=== PATIENT | female | born 1945 | race Caucasian/White ===

== ENCOUNTER 2016-12-19 14:09 | Emergency (ER) | payer MEDICARE ==
[~2016-12-19] VITALS: Ht 165.1 cm; Wt 62.8 kg
[2016-12-19 14:12] VITALS: BP 148/77
[2016-12-19] MEDS ORDERED: LIDOCAINE 1%, 20ML ONE (14:32)
[2016-12-19] MEDS ORDERED: LIDOCAINE 1%-EPI 1:100K, 20ML INFIL ONE (15:00)
[2016-12-19] MEDS ORDERED: BACITRACIN ZINC OINT 500U/GM, 0.9 GM TP ONE ×2 (15:00→15:30)
[2016-12-19] MEDS ORDERED: BACITRACIN ZINC OINT 500U/GM, 0.9 GM ONE (15:19)
== END 2016-12-19 15:46 | disposition home or self-care (01) ==
LOC: ED 15:20
DX: S01.81XA Laceration without foreign body of other part of head, initial encounter (principal); S60.511A Abrasion of right hand, initial encounter; W01.0XXA Fall on same level from slipping, tripping and stumbling without subsequent striking against object, initial encounter; Y93.01 Activity, walking, marching and hiking; Y92.410 Unspecified street and highway as the place of occurrence of the external cause; Y99.9 Unspecified external cause status
CPT/HCPCS: 12011; 99283